=== PATIENT | female | born 1980 | race Caucasian/White ===

== ENCOUNTER 2017-02-10 00:12 | Emergency (ER) | payer MEDICAID ==
[~2017-02-10] VITALS: Ht 162.6 cm; Wt 81.4 kg
[~2017-02-10 00:12] MED LIST: [UNRECOGNIZED DRUG - REMARK]
[2017-02-10 00:16] VITALS: BP 127/85
[2017-02-10] MEDS ORDERED: BICILLIN-LA 1,200,000 UNITS/2 ML IM ONE (01:30)
[2017-02-10] MEDS ORDERED: DEXAMETHASONE 4 MG/ML, 1ML PO ONE (01:30)
[2017-02-10] MEDS ORDERED: DEXAMETHASONE 4 MG TABLET ONE (01:35)
== END 2017-02-10 02:13 | disposition home or self-care (01) ==
LOC: ED 00:49
DX: J02.0 Streptococcal pharyngitis (principal)
CPT/HCPCS: 96372; 99283; J0561; J1100

== ENCOUNTER 2017-12-17 12:01 | Emergency (ER) | payer MEDICAID ==
[~2017-12-17] VITALS: Ht 160 cm; Wt 79.8 kg
[2017-12-17 12:17] VITALS: BP 115/68
== END 2017-12-17 13:23 | disposition home or self-care (01) ==
LOC: ED 13:00
DX: Z04.8 Encounter for examination and observation for other specified reasons (principal)
CPT/HCPCS: 99281